=== PATIENT | female | born 1990 | race Caucasian/White ===

== ENCOUNTER → 2017-01-31 14:22 | Emergency (ER) | payer BC, OTHER ==
[2017-01-31 15:53] LABS: Urine Bacteria Absent (Absent); Urine Bilirubin Negative (Negative); Urine Glucose Negative (Negative); Urine Nitrite Negative (Negative)
[2017-01-31 16:12] LABS: Hematocrit 41 % (35-47); Mean Corpuscular HGB Conc 34 g/dl (31-36); Mean Corpuscular Hemoglobin 29 pg (27-31); Mean Corpuscular Volume 86 fL (80-97); Mean Platelet Volume 10 um3 (7.4-10.4); Red Blood Count 4.79 10^6/ul (4.0-5.4); Red Cell Distribution Width 13 % (10.5-15); White Blood Count 11.5 10^3/ul (3.5-10.8)
[2017-01-31 16:52] LABS: TSH (Thyroid Stimulating Horm) 0.69 mcIU/mL (0.34-5.60)
[2017-01-31 17:49] LABS: Acetaminophen < 15 mcg/mL; Alcohol < 10 mg/dL (<10); Salicylate < 2.50 mg/dL (<30)
[2017-01-31 17:53] LABS: ALT 9 U/L (7-52); AST 10 U/L (13-39); Albumin 4.7 g/dL (3.2-5.2); Alkaline Phosphatase 54 U/L (34-104); BUN/Creatinine Ratio 17.7 (8-20); Blood Urea Nitrogen 11 mg/dL (6-24); CO2 Carbon Dioxide 23 mmol/L (22-32); Calcium 9.5 mg/dL (8.6-10.3); EGFR African American 148.5 (>60); EGFR Non-African American 115.5 (>60); Globulin 3.1 g/dL (2-4); Glucose 86 mg/dL (70-100); Total Protein 7.8 g/dL (6.4-8.9)
[2017-01-31 17:56] LABS: Benzodiazepine Urine Screen None Detected (None Detect)
--- NOTE | 2017-01-31 18:14 | ED ---
Laura Frye Edward, scribed for Claire Cardona MD on 01/31/17 at 1628 . Psychiatric Complaint - HPI Summary HPI Summary: 26 y/o female presents to ED c/o increased anxiety for the past 2 months. PMHx anxiety since the patient was 12. Associated sx: depression and fatigue. Patient has SI. She also c/o daily episodes where she feels "outside of herself. " lives with kids. smoker, no ETOH, no drugs. employed. No DM, HTN. - History Of Current Complaint Chief Complaint: EDMentalHealth Time Seen by Provider: 01/31/17 16:20 Hx Obtained From: Patient Onset/Duration: Gradual Onset, Lasting Weeks - Months, Still Present Timing: Constant Character: Depressed, Anxious Has Suicidal: Reports: Thoughts - Allergies/Home Medications Allergies/Adverse Reactions: Allergies Allergy/AdvReac Type Severity Reaction Status Date / Time Citalopram [From Celexa] Allergy Severe See Comment Verified 09/25/15 14:10 PMH/Surg Hx/FS Hx/Imm Hx Previously Healthy: No Psychiatric History: Reports: Hx Anxiety Infectious Disease History: Denies: Traveled Outside the [place] in Last 30 Days - Family History Known Family History: Positive: Other - No CA Negative: Cardiac Disease - No [place], DVT, Respiratory Disease - No PE - Social History Occupation: Employed Full-time Lives: With Family Alcohol Use: None Hx Substance Use: No Substance Use Type: Reports: None Hx Tobacco Use: Yes Smoking Status (MU): Current Every Day Smoker Type: Cigarettes Review of Systems Constitutional: Negative Eyes: Negative ENT: Negative Cardiovascular: Negative Respiratory: Negative Gastrointestinal: Negative Genitourinary: Negative Musculoskeletal: Negative Skin: Negative Neurological: Negative Positive: Anxious, Depressed, Other - "Episodes of feeling outside of herself" All Other Systems Reviewed And Are Negative: Yes Physical Exam Triage Information Reviewed: Yes Vital Signs On Initial Exam: Initial Vitals Temp Pulse Resp BP Pulse Ox 99.0 F 108 20 142/112 98 01/31/17 14:33 01/31/17 14:33 01/31/17 14:33 01/31/17 14:33 01/31/17 14:33 Vital Signs Reviewed: Yes Appearance: Positive: Well-Appearing, No Pain Distress Skin: Positive: Warm, Skin Color Reflects Adequate Perfusion, Dry Eyes: Positive: EOMI, ROYER ENT: Positive: Pharynx normal, TMs normal Neck: Positive: Supple, Nontender Respiratory/Lung Sounds: Positive: Clear to Auscultation, Breath Sounds Present. Negative: Rales, Rhonchi, Wheezes Cardiovascular: Positive: RRR. Negative: Murmur, Rub, Other - No gallop Abdomen Description: Positive: Nontender, Soft. Negative: Distended, Guarding, Other: - No rebound Bowel Sounds: Positive: Present Musculoskeletal: Positive: Strength/ROM Intact. Negative: Edema Left, Edema Right Neurological: Positive: Sensory/Motor Intact, Alert, Oriented to Person Place, Time, CN Intact II-III Psychiatric: Positive: Other - Tearful Diagnostics - Vital Signs Vital Signs Temp Pulse Resp BP Pulse Ox 01/31/17 14:33 99.0 F 108 20 142/112 98 - Laboratory Lab Results: Lab Results 01/31/17 01/31/17 Range/Units 15:15 15:50 WBC 11.5 H (3.5-10.8) 10^3/ul RBC 4.79 (4.0-5.4) 10^6/ul Hgb 14.0 (12.0-16.0) g/dl Hct 41 (35-47) % MCV 86 (80-97) fL MCH 29 (27-31) pg MCHC 34 (31-36) g/dl RDW 13 (10.5-15) % Plt Count 214 (150-450) 10^3/ul MPV 10 (7.4-10.4) um3 Neut % (Auto) 77.4 (38-83) % Lymph % (Auto) 14.5 L (25-47) % [place] % (Auto) 5.9 (1-9) % Eos % (Auto) 1.2 (0-6) % Baso % (Auto) 1.0 (0-2) % Absolute Neuts (auto) 8.9 H (1.5-7.7) 10^3/ul Absolute Lymphs (auto) 1.7 (1.0-4.8) 10^3/ul Absolute Monos (auto) 0.7 (0-0.8) 10^3/ul Absolute Eos (auto) 0.1 (0-0.6) 10^3/ul Absolute Basos (auto) 0.1 (0-0.2) 10^3/ul Absolute Nucleated RBC 0 10^3/ul Nucleated RBC % 0 Urine Color Yellow Urine Appearance Cloudy Urine pH 5.0 (5-9) Ur Specific [place] 1.023 (1.010-1.030) Urine Protein Negative (Negative) Urine Ketones Negative (Negative) Urine Blood Negative (Negative) Urine Nitrate Negative (Negative) Urine Bilirubin Negative (Negative) Urine Urobilinogen Negative (Negative) Ur Leukocyte Esterase 1+ H (Negative) Urine WBC (Auto) Trace(0-5/hpf) (Absent) Urine RBC (Auto) 1+(3-5/hpf) H (Absent) Ur Squamous Epith Cells Present H (Absent) Urine Bacteria Absent (Absent) Urine Glucose Negative (Negative) Result Diagrams: 01/31/17 15:50 01/31/17 15:50 Lab Statement: Any lab studies that have been ordered have been reviewed, and results considered in the medical decision making process. Course/Dx - Course Assessment/Plan: Patient is medically cleared for MHU EVAL @ 18:[address] Cardona. - Differential Dx/Clinical Impression Provider Diagnosis: Anxiety Discharge - Discharge Plan Condition: Stable Disposition: OTHER Discharge Disposition Comment: Pt will be admitted for MHU eval. Pt will be signed out to Dr. Do. Referrals: No Primary Care Phys,NOPCP [Primary Care Provider] - The documentation as recorded by the Laura draper Edward accurately reflects the service I personally performed and the decisions made by Dulce montano Justine, MD.
[2017-01-31 20:10] VITALS: BP 148/84
[2017-01-31 22:17] LABS: Anion Gap 9 mmol/L (2-11); Chloride 106 mmol/L (101-111); Potassium 3.9 mmol/L (3.5-5.0); Sodium 138 mmol/L (133-145)
== END ==
LOC: ED 14:22
DX: F32.9 Major depressive disorder, single episode, unspecified (principal); F17.210 Nicotine dependence, cigarettes, uncomplicated
CPT/HCPCS: 36415; 80053; 80307; 80320; 80329; 81003; 81015; 84443; 85025; 87086; 99283; G0480